=== PATIENT | female | born 1995 | race Caucasian/White ===

== ENCOUNTER 2017-06-23 21:03 | Emergency (ER) | payer OTHER ==
[2017-06-23 21:09] VITALS: TEMP 99
[2017-06-23] MEDS ORDERED: PROPARACAINE 0.5% 15 ML OPHT DROP ONE (21:11)
--- NOTE | 2017-06-23 21:23 | EDPHY ---
H & P Stated Complaint: biat eye irritation and drainiage since slept in contacts last night Time Seen by Provider: 06/23/17 21:22 HPI/ROS: HPI: This is a 22-year-old female who presents with Chief Complaint: Bilateral eye irritation and drainage since slept in contacts last night Location: Bilateral eye Quality: Irritation and drainage Duration: 1 9 Signs and Symptoms: no fever, no nausea, no vomiting, no photophobia, no noise sensitivity, no neck stiffness, no ear pain, no tinnitus, no nasal congestion, no sinus pressure, no weakness, no radiation Timing: Gradually worsening Severity: [id number] Context: Patient was contact lens and slept than them last evening. She woke up this morning with eye redness and drainage. She reports that now she has bilateral eye puffiness and light sensitivity. Denies any foreign body/vision changes. She took her contacts out this morning. 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 Modifying Factors: None Comment: ROS: see HPI Constitutional: No fever, no chills, no weight loss Eyes: No blurred vision Respiratory: No shortness of breath, no cough Cardiovascular: No chest pain, no palpitations Gastrointestinal: No nausea, no vomiting, no diarrhea, no hematemesis, no blood in stool Genitourinary: No dysuria, no blood in urine Extremities: No myalgias, no edema Neurologic: No weakness, no numbness Skin: No rashes, no petechiae Hematologic: No bruising, no bleeding MEDICAL/SURGICAL/SOCIAL HISTORY: Medical history: Generally healthy. Does not take any regular medications. Surgical history: Denies Social history: Student General: Well-developed well-nourished young adult white female awake and alert nontoxic in appearance. Visual Acuity: noted from Nurse's notes. Pupils: equal round and reactive to light. EOMI. Lids: no edema or swelling Skin: no proptosis, no periorbital erythema or swelling, no vesicles. Conjunctivae: Mildly injected, whitish discharge Anterior chamber: normal, no hyphema or hypopyon Source: Patient Exam Limitations: No limitations - Personal History LMP (Females 10-55): 22-28 Days Ago Current Tetanus Diphtheria and Acellular Pertussis (TDAP): Yes - Medical/Surgical History Hx Asthma: No Hx Chronic Respiratory Disease: No Hx Diabetes: No Hx Cardiac Disease: No Hx Renal Disease: No Hx Cirrhosis: No Hx Alcoholism: No Hx HIV/AIDS: No Hx Splenectomy or Spleen Trauma: No Other PMH: denies - Social History Smoking Status: Never smoked Constitutional: Initial Vital Signs Temperature (C) 37.2 C 06/23/17 21:06 Heart Rate 80 06/23/17 21:06 Respiratory Rate 16 06/23/17 21:06 Blood Pressure 129/82 H 06/23/17 21:06 O2 Sat (%) 100 06/23/17 21:06 O2 Delivery Mode Room Air Allergies/Adverse Reactions: No Known Allergies Allergy (Unverified 06/23/17 21:06) Home Medications: Medication Instructions Recorded NK [No Known Home Meds] 06/23/17 Medical Decision Making ED Course/Re-evaluation: Contact lens wear Tetanus up-to-date Patient given proparacaine drops as well as fluoroquinolone eyedrops Ophthalmology follow This patient was seen under the supervision of my secondary supervising physician. I evaluated care for this patient independently. Differential Diagnosis: Differential diagnosis includes but is not limited to conjunctivitis, corneal abrasion. Departure - Departure Disposition: Home, Routine, Self-Care Clinical Impression: Wears contact lenses Conjunctivitis Qualifiers: Conjunctivitis type: acute Acute conjunctivitis type: unspecified Laterality: bilateral Qualified Code(s): H10.33 - Unspecified acute conjunctivitis, bilateral Condition: Good Instructions: Ofloxacin (Into the eye), Conjunctivitis (ED) Additional Instructions: Use proparacaine topical eye drops every 6 hr as needed for pain times 48 hr only. Use ofloxacin drops; 1-2 drops every 4 hr x2 days then 4 times a day x5 days. Follow-up with Ophthalmology in 3-4 days if symptoms have not improved. Do not wear contact lenses until all symptoms have resolved. Eye Complaint: Return to the Emergency Department for any increase in eye pain, redness, swelling, discharge or any worsening of your vision. Referrals: Luke Vo MD [Medical Doctor] - As per Instructions
[2017-06-23] MEDS ORDERED: OFLOXACIN 0.3% SOLN PREPACK OPHT.BTL TAKEHOME ONE (21:31)
[2017-06-23 22:30] VITALS: BP 133/81; PULSE 78; RESP 18; O2SAT 96
== END 2017-06-23 22:30 | disposition home or self-care (01) ==
DX: H10.33 Unspecified acute conjunctivitis, bilateral (principal)